=== PATIENT | male | born 1980 | race Two or more races ===

== ENCOUNTER → 2024-11-13 | Outpatient (CLI) | payer MEDICAID, SELFPAY ==
--- NOTE | 2024-11-13 | XR_ITS ---
Examination: Knee, left , 3 views Technique: Knee AP, lateral, oblique 3 views Date and time of exam: November 13, 2024 1156 hours INDICATIONS: Knee pain months FINDINGS: Moderate tricompartment osteoarthritis, most prominent medial patellofemoral joints Moderate osteopenia No fracture IMPRESSION: Moderate tricompartment osteoarthritis
== END | disposition home or self-care (01) ==
PROVIDERS: PCP Physician Assistant; Referring Provider Physician Assistant; Visit Provider Physician Assistant
DX: M17.12 Unilateral primary osteoarthritis, left knee (principal)
CPT/HCPCS: 73562

== ENCOUNTER → 2025-02-05 | Outpatient (CLI) | payer MEDICAID, SELFPAY ==
--- NOTE | 2025-02-05 13:55 | XR_ITS ---
Examination: Bone densitometry Date and time of exam:February 05, 2025 at 1431 hrs. Indications: 44-year-old male with osteopenia Technique: Lumbar spine and hip total bone mineralization values of an calculated. Peak reference and age match control results have been displayed. Findings: Lumbar spine total bone mineralization is1 .078 gm/cm2. This is 0.1 standard deviations below peak reference. This is 0.1 standard deviations above age-matched controls. Hip total bone mineralization is 1.235 gm/cm2 This is 1.4 standard deviations above peak reference. This is 1.6 standard deviations above age-matched controls Impression: There is normal mineralization based on lumbar spine measurements. There is normal mineralization based on hip measurements
== END | disposition home or self-care (01) ==
PROVIDERS: PCP Physician Assistant; Referring Provider Physician Assistant; Visit Provider Physician Assistant
DX: M81.0 Age-related osteoporosis without current pathological fracture (principal)
CPT/HCPCS: 77080